=== PATIENT | female | born 1990 | race African-American/Black ===

== ENCOUNTER 2021-10-25 17:02 | Inpatient (IN) | payer OTHER ==
[2021-10-25] MEDS ORDERED: MENTHOL/PHENOL 1 EACH UD MM PRN (19:45)
[2021-10-25] MEDS ORDERED: MAG HYDROX/AL HYDROX/SIMETH 30 ML UNIT-DOSE CUP PO PRN (19:45)
[2021-10-25] MEDS ORDERED: MAGNESIUM HYDROX 2400MG/30ML ORAL SUSPENSION 30 ML CUP PO PRN (19:45)
[2021-10-25] MEDS ORDERED: NICOTINE POLACRILEX 2 MG GUM BUC PRN (19:45)
[2021-10-25] MEDS ORDERED: ONDANSETRON *ODT* 4 MG TABLET SL PRN (19:45)
[2021-10-25] MEDS ORDERED: LOPERAMIDE HCL 2 MG CAPSULE PO PRN (19:45)
[2021-10-25] MEDS ORDERED: ACETAMINOPHEN 325 MG TABLET (FP) PO PRN ×2 (19:45)
[2021-10-25] MEDS ORDERED: IBUPROFEN 400 MG TABLET (FP) PO PRN (19:45)
[2021-10-25] MEDS ORDERED: BISMUTH SUBSALICYLATE 524 MG/30 ML PO PRN (19:45)
[2021-10-25] MEDS ORDERED: MAGNESIUM CITRATE 300 ML BOTTLE PO PRN (19:45)
[2021-10-25 21:29] VITALS: BMI 21.2
[2021-10-25] MEDS ORDERED: ALBUTEROL SO4 HFA INHALER IH ONE (22:09)
[2021-10-25] MEDS: hydrOXYzine PAMOATE 25 MG CAPSULE (FP) PO SCH (23:01)
[2021-10-25] MEDS: MELATONIN 5 MG TABLETS PO SCH (23:01)
[2021-10-25] MEDS: THIAMINE HCL 100 MG TABLET (FP) PO SCH (23:01)
[2021-10-25] MEDS: diazePAM 5 MG TABLET PO SCH (23:05)
[2021-10-26] MEDS: NITROFURANTOIN MACROCRYSTAL 50 MG CAPSULE (FP) PO SCH ×4 (01:25→17:59)
[2021-10-26] MEDS: hydrOXYzine PAMOATE 25 MG CAPSULE (FP) PO SCH ×5 (06:23→22:24)
[2021-10-26] MEDS: diazePAM 5 MG TABLET PO SCH ×4 (06:23→22:22)
[2021-10-26] MEDS: ALBUTEROL SO4 HFA INHALER IH PRN ×2 (08:37→14:41)
[2021-10-26] MEDS: PRENATAL VITAMINS W/ FOLIC ACID TABLET (FP) PO SCH (10:14)
[2021-10-26] MEDS: METHOCARBAMOL 500 MG TABLET PO PRN ×2 (10:14→22:22)
[2021-10-26 11:01] LABS: HEMOGLOBIN 11.5 GM/dL (10.7-15.3); MCH 31.2 pg (25.7-33.7); MCHC 33.9 g/dl (32.0-36.0); MEAN CELL VOLUME 92.1 fl (80-96); MEAN PLT VOLUME 7.9 fl (7.5-11.1); PLATELET COUNT 299 10^3/uL (134-434); RBC 3.69 M/mm3 (3.60-5.2); RDW 15.4 % (11.6-15.6); WHITE BLOOD COUNT 5.4 K/mm3 (4.0-10.0)
[2021-10-26 11:07] LABS: ALBUMIN 3.8 g/dl (3.4-5.0)
[2021-10-26 11:09] LABS: BLOOD UREA NITROGEN 9.7 mg/dL (7-18)
[2021-10-26 11:10] LABS: CREATININE 0.9 mg/dL (0.55-1.3)
[2021-10-26 11:11] LABS: BILIRUBIN,TOTAL 0.7 mg/dL (0.2-1)
[2021-10-26 11:12] LABS: TOT PROT 7.5 g/dl (6.4-8.2)
[2021-10-26] MEDS ORDERED: FLU VACC QS2021-22(6MOS UP)/PF 60 MCG/0.5 ML SYRINGE IM ONE (12:00)
[2021-10-26] MEDS ORDERED: PNEUMOCOCCAL 23 VACCINE 0.5 ML VIAL IM ONE (12:00)
[2021-10-26] MEDS ORDERED: PNEUMOC 13-VAL CONJ-DIP CRM/PF 0.5 ML DISP.SYRIN IM ONE (12:00)
[2021-10-26] MEDS: MELATONIN 5 MG TABLETS PO SCH (22:22)
[2021-10-26] MEDS: THIAMINE HCL 100 MG TABLET (FP) PO SCH (22:22)
[2021-10-27] MEDS: NITROFURANTOIN MACROCRYSTAL 50 MG CAPSULE (FP) PO SCH ×5 (06:09→18:03)
[2021-10-27] MEDS: hydrOXYzine PAMOATE 25 MG CAPSULE (FP) PO SCH ×5 (06:10→22:48)
[2021-10-27] MEDS: diazePAM 5 MG TABLET PO SCH ×3 (06:10→22:48)
[2021-10-27 07:07] LABS: SARS-CoV-2 NAA Not Detected (Not Detected)
[2021-10-27] MEDS: diazePAM 5 MG TABLET PO PRN (10:19)
[2021-10-27] MEDS: PRENATAL VITAMINS W/ FOLIC ACID TABLET (FP) PO SCH (10:19)
[2021-10-27] MEDS: ALBUTEROL SO4 HFA INHALER IH PRN ×2 (19:56→23:01)
[2021-10-27] MEDS: MELATONIN 5 MG TABLETS PO SCH (22:47)
[2021-10-27] MEDS: THIAMINE HCL 100 MG TABLET (FP) PO SCH (22:48)
[2021-10-28] MEDS: NITROFURANTOIN MACROCRYSTAL 50 MG CAPSULE (FP) PO SCH ×3 (01:11→13:16)
[2021-10-28] MEDS: ALBUTEROL SO4 HFA INHALER IH PRN ×2 (03:51→07:46)
[2021-10-28] MEDS: hydrOXYzine PAMOATE 25 MG CAPSULE (FP) PO SCH ×3 (05:03→13:28)
[2021-10-28] MEDS ORDERED: diazePAM 5 MG TABLET PO SCH (06:00)
[2021-10-28] MEDS: PRENATAL VITAMINS W/ FOLIC ACID TABLET (FP) PO SCH (10:17)
[2021-10-28] MEDS: METHOCARBAMOL 500 MG TABLET PO PRN (10:17)
[2021-10-28] MEDS: diazePAM 5 MG TABLET PO PRN (10:18)
[2021-10-28 13:54] VITALS: BP 141/81; PULSE 106; TEMP 98.9
[2021-10-28 14:38] LABS: EPI CELLS >36 /uL (0-25.1); HYALINE CASTS 1 /uL (0-3.1); PH,URINE 6.5 (5.0-8.0); URINE APPEARANCE CLEAR; URINE BACTERIA 131 /uL (0-1359); URINE BILIRUBIN NEGATIVE (NEGATIVE); URINE COLOR YELLOW; URINE GLUCOSE (UA) NEGATIVE (NEGATIVE); URINE KETONE NEGATIVE (NEGATIVE); URINE LEUK ESTERASE 1+ (NEGATIVE); URINE NITRITE NEGATIVE (NEGATIVE); URINE PROTEIN TRACE (NEGATIVE); URINE RBC 136 /uL (0-23.9); URINE UROBILINOGEN 0.2 mg/dL (0.2-1.0); URINE WBC 51 /uL (0-25.8)
[2021-10-29] MEDS ORDERED: diazePAM 5 MG TABLET PO ONE (06:00)
== END 2021-10-28 14:09 | disposition home or self-care (01) | DRG 775 ==
LOC: YASAS 17:02 → Y6N 20:26
PROVIDERS: ADMIT Allergy & Immunology; ATTEND Allergy & Immunology
PROC: HZ2ZZZZ Detoxification Services for Substance Abuse Treatment (ICD-10-PCS; principal; 2021-10-25)
DX: F10.230 Alcohol dependence with withdrawal, uncomplicated (principal); F17.210 Nicotine dependence, cigarettes, uncomplicated; F10.282 Alcohol dependence with alcohol-induced sleep disorder; I10 Essential (primary) hypertension; N39.0 Urinary tract infection, site not specified; R73.9 Hyperglycemia, unspecified; R01.1 Cardiac murmur, unspecified; Z91.410 Personal history of adult physical and sexual abuse
CPT/HCPCS: 36415; 80053; 81003; 81025; 82962; 85027; 86780; 87811; 90686; 90732; C9803-CS; G0008; G0009; U0003; U0005

== ENCOUNTER 2023-05-06 15:36 | Inpatient (IN) | payer OTHER ==
[2023-05-06 17:41] VITALS: BMI 19.5
[2023-05-06] MEDS ORDERED: LOPERAMIDE HCL 2 MG CAPSULE PO PRN (18:34)
[2023-05-06] MEDS ORDERED: BENZOCAINE/MENTHOL (CHLORASEPTIC ) LOZENGE MM PRN (18:34)
[2023-05-06] MEDS ORDERED: NICOTINE POLACRILEX 2 MG GUM BUC PRN (18:34)
[2023-05-06] MEDS ORDERED: IBUPROFEN 400 MG TABLET (FP) PO PRN (18:34)
[2023-05-06] MEDS ORDERED: guaiFENesin 600 MG TABLET.ER (FP) PO PRN (18:34)
[2023-05-06] MEDS ORDERED: ONDANSETRON *ODT* 4 MG TABLET SL PRN (18:34)
[2023-05-06] MEDS ORDERED: NALOXONE HCL 0.4 MG/ML VIAL IM PRN (18:34)
[2023-05-06] MEDS ORDERED: BENZONATATE 200 MG CAPSULE PO PRN (18:34)
[2023-05-06] MEDS ORDERED: IBUPROFEN 600 MG TABLET (FP) PO PRN (18:34)
[2023-05-06] MEDS ORDERED: METHOCARBAMOL 500 MG TABLET PO PRN (18:34)
[2023-05-06] MEDS ORDERED: BISMUTH SUBSALICYLATE 524 MG/30 ML PO PRN (18:34)
[2023-05-06] MEDS ORDERED: MAG HYDROX/AL HYDROX/SIMETH 30 ML UNIT-DOSE CUP PO PRN (18:34)
[2023-05-06] MEDS ORDERED: hydrOXYzine PAMOATE 25 MG CAPSULE (FP) PO PRN (18:34)
[2023-05-06] MEDS ORDERED: ACETAMINOPHEN 325 MG TABLET (FP) PO PRN (18:34)
[2023-05-06] MEDS ORDERED: NALOXONE HCL (KLOXXADO) 8 MG SPRAY NS PRN (18:34)
[2023-05-06] MEDS ORDERED: MAGNESIUM HYDROX 2400MG/30ML ORAL SUSPENSION 30 ML CUP PO PRN (18:34)
[2023-05-06] MEDS ORDERED: DICYCLOMINE HCL 10 MG CAPSULE PO PRN (18:34)
[2023-05-06] MEDS ORDERED: POLYETHYLENE GLYCOL (HEALTHYLAX) 3350 17 GM PACKET PO PRN (18:34)
[2023-05-06] MEDS ORDERED: ALBUTEROL SO4 HFA INHALER IH PRN (18:37)
[2023-05-06] MEDS: THIAMINE HCL 100 MG TABLET (FP) PO SCH (22:33)
[2023-05-06] MEDS: levETIRAcetam 500 MG TABLET (FP) PO SCH (22:33)
[2023-05-06] MEDS: MELATONIN 5 MG TABLETS PO SCH (22:33)
[2023-05-07] MEDS ORDERED: chlordiazePOXIDE HCL 25 MG CAPSULE PO PRN (09:31)
[2023-05-07] MEDS: PRENATAL VITAMINS W/ FOLIC ACID TABLET (FP) PO SCH (10:17)
[2023-05-07] MEDS: levETIRAcetam 500 MG TABLET (FP) PO SCH ×2 (10:17→22:16)
[2023-05-07] MEDS: amLODIPine BESYLATE 10 MG TABLET (FP) PO SCH (10:18)
[2023-05-07] MEDS: chlordiazePOXIDE HCL 25 MG CAPSULE PO SCH ×3 (10:18→22:16)
[2023-05-07] MEDS: NICOTINE 14 MG/24 HOURS TOPICAL PATCH TD SCH (10:18)
[2023-05-07 10:21] LABS: HEMATOCRIT 34.6 % (32.4-45.2); HEMOGLOBIN 12.3 GM/dL (10.7-15.3); MCH 31.8 pg (25.7-33.7); MCHC 35.4 g/dl (32.0-36.0); MEAN CELL VOLUME 89.8 fl (80-96); MEAN PLT VOLUME 7.1 fl (7.5-11.1); PLATELET COUNT 312 10^3/uL (134-434); RBC 3.85 M/mm3 (3.60-5.2); RDW 13.9 % (11.6-15.6)
[2023-05-07 10:48] LABS: POTASSIUM 4.1 mmol/L (3.5-5.1)
[2023-05-07 11:02] LABS: CALCIUM 8.4 mg/dL (8.5-10.1)
[2023-05-07 11:03] LABS: ALBUMIN 3.2 g/dl (3.4-5.0); BLOOD UREA NITROGEN 14.8 mg/dL (7-18)
[2023-05-07 11:06] LABS: CREATININE 0.8 mg/dL (0.55-1.3)
[2023-05-07 11:07] LABS: BILIRUBIN,TOTAL 0.5 mg/dL (0.2-1); TOT PROT 6.5 g/dl (6.4-8.2)
[2023-05-07] MEDS: THIAMINE HCL 100 MG TABLET (FP) PO SCH (22:16)
[2023-05-07] MEDS: MELATONIN 5 MG TABLETS PO SCH (22:16)
[2023-05-08] MEDS: chlordiazePOXIDE HCL 25 MG CAPSULE PO SCH ×4 (05:57→22:29)
[2023-05-08] MEDS: amLODIPine BESYLATE 10 MG TABLET (FP) PO SCH (10:23)
[2023-05-08] MEDS: levETIRAcetam 500 MG TABLET (FP) PO SCH ×2 (10:23→22:29)
[2023-05-08] MEDS: PRENATAL VITAMINS W/ FOLIC ACID TABLET (FP) PO SCH (10:23)
[2023-05-08] MEDS: NICOTINE 14 MG/24 HOURS TOPICAL PATCH TD SCH (10:24)
[2023-05-08] MEDS: MELATONIN 5 MG TABLETS PO SCH (22:29)
[2023-05-08] MEDS: THIAMINE HCL 100 MG TABLET (FP) PO SCH (22:29)
[2023-05-09] MEDS: chlordiazePOXIDE HCL 10 MG CAPSULE PO SCH ×2 (05:47→10:16)
[2023-05-09 07:04] VITALS: RESP 18
[2023-05-09 09:37] VITALS: BP 124/77; PULSE 92; TEMP 96.8
[2023-05-09] MEDS: amLODIPine BESYLATE 10 MG TABLET (FP) PO SCH (10:16)
[2023-05-09] MEDS: PRENATAL VITAMINS W/ FOLIC ACID TABLET (FP) PO SCH (10:16)
[2023-05-09] MEDS: NICOTINE 14 MG/24 HOURS TOPICAL PATCH TD SCH (10:16)
[2023-05-09] MEDS: levETIRAcetam 500 MG TABLET (FP) PO SCH (10:16)
[2023-05-10] MEDS ORDERED: chlordiazePOXIDE HCL 10 MG CAPSULE PO SCH (05:00)
[2023-05-11] MEDS ORDERED: chlordiazePOXIDE HCL 10 MG CAPSULE PO ONE (05:00)
== END 2023-05-09 11:40 | disposition left against medical advice (07) | DRG 770 ==
LOC: YASAS 15:36 → Y6N 18:47
PROVIDERS: ADMIT Allergy & Immunology; ATTEND Surgery
PROC: HZ2ZZZZ Detoxification Services for Substance Abuse Treatment (ICD-10-PCS; principal; 2023-05-06)
DX: F10.230 Alcohol dependence with withdrawal, uncomplicated (principal); F12.20 Cannabis dependence, uncomplicated; F17.210 Nicotine dependence, cigarettes, uncomplicated; F39 Unspecified mood [affective] disorder; F10.282 Alcohol dependence with alcohol-induced sleep disorder; G40.909 Epilepsy, unspecified, not intractable, without status epilepticus; I10 Essential (primary) hypertension; J45.20 Mild intermittent asthma, uncomplicated
CPT/HCPCS: 36415; 80053; 85027; 86780; 87635